=== PATIENT | male | born 1985 | race Caucasian/White ===

== ENCOUNTER 2022-05-22 14:06 | Inpatient (IN) | payer MEDICAID, OTHER, SELFPAY ==
[~2022-05-22 14:06] MED LIST: Iopamidol-370 76% 500 ML 1 ML ONE
[2022-05-22] MEDS ORDERED: Boostrix 0.5 ML (Tdap) VIAL (>/=7 yrs of age) ONE (14:17)
[2022-05-22] MEDS ORDERED: CEFAZOLIN 1 GM VIAL ONE (14:17)
[2022-05-22] MEDS ORDERED: Propofol 1,000 MG/100 ML VIAL IV ONE (14:20)
[2022-05-22] MEDS ORDERED: Fentanyl 100 MCG/2 ML VIAL ONE ×3 (14:22→17:44)
[2022-05-22] MEDS ORDERED: Rocuronium Bromide 10 MG/ML (10ML VIAL) ONE ×2 (14:24→14:30)
[2022-05-22 14:35] LABS: Hemoglobin 11.9 g/dL (14.0-18.0); Mean Corpuscular HGB CONC 31.6 g/dL (32.0-36.0); Mean Corpuscular Hemoglobin 25.5 pg (27.0-31.0); Mean Corpuscular Volume 80.8 fl (78.0-98.0); Mean Platelet Volume 7.5 fL (7.4-10.4); Platelet Count 399 10x3/uL (130-400); RBC Distribution Width 14.3 % (11.5-14.5); Red Blood Cell (RBC) Count 4.68 mill/uL (4.70-6.10); White Blood Cell (WBC) Count 45.7 10x3/uL (4.8-10.8)
[2022-05-22 14:45] LABS: INR-International Normal Ratio 0.9; PTT 24.7 sec (22.9-36.1); Prothrombin Time 12.9 sec (12.0-14.7)
[2022-05-22 14:57] LABS: ALT (SGPT) 34 U/L (8-55); AST (SGOT) 56 U/L (5-34); Albumin 3.8 g/dL (3.5-5.0); Alcohol Less than 10 mg/dL (Less than 10); Alkaline Phosphatase 108 U/L (40-110); Anion Gap 16 mmol/L (10-20); BUN (Urea Nitrogen) 17 mg/dL (8.9-20.6); Bilirubin, Total 0.5 mg/dL (0.2-1.2); Calc. Creatinine Clearance 0 mL/min (70-130); Calcium 8.7 mg/dL (7.8-10.44); Carbon Dioxide 20 mmol/L (22-29); Chloride 104 mmol/L (98-107); Estimated GFR 77; Globulin 3.2 g/dL (2.4-3.5); Glucose 162 mg/dL (70-105); Potassium 3.9 mmol/L (3.5-5.1); Sodium 136 mmol/L (136-145)
[2022-05-22 15:00] LABS: Band 18 % (5-11); Eosinophils 2 % (0-10); Hypochromia SLIGHT = 6-15 cells (100X) (0-5/hpf); Lymphocytes 16 % (21-51); MDiff Complete? YES; Metamyelocyte 1 % (0-0); Monocytes 2 % (0-10); Myelocyte 2 % (0-0); Neutrophil 59 % (42-75); Ovalocytes SLIGHT = 2-5 cells (100X) (0-1/hpf); Platelet Morphology Comment Appears Adequate; Polychromasia SLIGHT = 2-3 cells (100X) (0-2/hpf); Reflex for Review?? YES
[2022-05-22 15:01] LABS: Acetaminophen Less than 10.0 mcg/mL (10.0-30.0); Alcohol Less than 10 mg/dL (Less than 10); Salicylate Less than 8.0 mg/dL (15.0-30.0)
[2022-05-22] MEDS ORDERED: Morphine CADD 100 ML IVPB SCH ×2 (15:15→17:00)
[2022-05-22 15:17] LABS: Bacteria/HPF None Seen HPF (None Seen); Bilirubin Negative (Negative); Blood, Urine 2+ (Negative); Clarity Clear (Clear); Glucose, Urine (Dipstick) Normal (Negative); Ketone, Urine Negative (Negative); Leukocyte Negative Leu/uL (Negative); Nitrite Negative (Negative); Protein, Urine (Dipstick) 10 mg/dL (Neg-Trace); RBC/HPF 0-3 HPF (0-3); Specific Gravity, Urine 1.023 (1.002-1.036); Squamous Epithelial 0-3 HPF (0-3); Urobilinogen Normal mg/dL (Less than 2); WBC/HPF 0-3 HPF (0-3); pH, Urine 5.5 (5.0-9.0)
[2022-05-22 15:24] LABS: Amphetamine Not Detected (NotDetected); Barbiturates Screen Not Detected (NotDetected); Benzodiazepine Screen Not Detected (NotDetected); Cocaine Metabolite Screen Not Detected (NotDetected); Methadone Not Detected (NotDetected); Methamphetamine Not Detected (NotDetected); Opiate Screen Not Detected (NotDetected); Oxycodone Screen Not Detected (NotDetected); Phencyclidine (PCP) Not Detected (NotDetected); THC/Cannabinoid Screen Not Detected (NotDetected); Tricyclic Screen Detected (NotDetected)
[2022-05-22 15:37] LABS: Actual Bicarbonate (HCO3a) 21.9 mEq/L (22-28); Analyzer IN Cardio ER; Base Excess (BEa) -6.7 mEq/L (-2.0 to +3.0); CO2 Tension 58.8 mmHg (35.0-45.0); Calcium, Ionized (arterial) 1.14 mmol/L (1.12-1.30); Hemoglobin (Hb) 11.2 g/dL (14.0-18.0); Potassium - ABG Lab 3.87 mmol/L (3.70-5.30)
[2022-05-22] MEDS ORDERED: Dextrose 5% in Water 1,000 ML IV PRN (16:02)
[2022-05-22] MEDS ORDERED: Insulin Regular 300 UNITS/3 ML VIAL SC PRN (16:02)
[2022-05-22] MEDS ORDERED: Ondansetron PF 4 MG/2 ML Vial IVP PRN (16:02)
[2022-05-22] MEDS ORDERED: Dextrose 50% Abboject 50 ML SYRINGE SLOW IVP PRN (16:02)
[2022-05-22] MEDS ORDERED: Ipratropium/Albuterol 3 ML NEB NEB PRN (16:02)
[2022-05-22] MEDS ORDERED: Ventilator Sedation Protocol FS PRN (16:07)
[2022-05-22] MEDS ORDERED: Fentanyl 100 MCG/2 ML VIAL SLOW IVP PRN (16:09)
[2022-05-22 16:15] LABS: Actual Bicarbonate (HCO3a) 20.3 mEq/L (22-28); Analyzer IN Cardio ER; Base Excess (BEa) -6.8 mEq/L (-2.0 to +3.0); CO2 Tension 47.9 mmHg (35.0-45.0); Calcium, Ionized (arterial) 1.11 mmol/L (1.12-1.30); Hemoglobin (Hb) 10.5 g/dL (14.0-18.0); O2 Tension (PaO2), arterial 81.1 mmHg (80.0-100.0); Potassium - ABG Lab 3.95 mmol/L (3.70-5.30); pH, Arterial 7.25 (7.35-7.45)
[2022-05-22] MEDS ORDERED: Sodium Chloride 0.9% 1,000 ML IV SCH (16:15)
[2022-05-22 16:18] LABS: pH, Arterial 7.19 (7.35-7.45)
[2022-05-22 16:19] LABS: O2 Tension (PaO2), arterial 59.4 mmHg (80.0-100.0); Puncture Site RBA
[2022-05-22 16:20] LABS: ALV-art Gradient 572.025 mmHg (0-20); Puncture Site RBA
[2022-05-22] MEDS ORDERED: Midazolam HCl 5 mg/ml Vial ONE (16:28)
[2022-05-22] MEDS ORDERED: Midazolam HCl 2 mg/2 ml Vial ONE (16:28)
[2022-05-22] MEDS ORDERED: Dexmedetomidine In 0.9 % NaCl 100 ML IVPB SCH ×2 (16:30→21:15)
[2022-05-22 16:33] LABS: SARS-CoV-2 NAA Rapid Test Not Detected (NotDetected)
[2022-05-22 16:45] LABS: Cardiac Risk 4.1 (Less than 4.5)
[2022-05-22] MEDS ORDERED: Midazolam In 0.9 % NaCl/PF 100 ML IVPB SCH (16:45)
[2022-05-22] MEDS ORDERED: Midazolam HCl 2 mg/2 ml Vial SLOW IVP PRN (16:46)
[2022-05-22] MEDS ORDERED: Propofol 1,000 MG/100 ML VIAL IV PRN (17:00)
[2022-05-22] MEDS ORDERED: Morphine 4 MG/ML VIAL SLOW IVP PRN (17:00)
[2022-05-22] MEDS ORDERED: Propofol BOLUS 1,000 MG/100 ML VIAL IV PRN (17:00)
[2022-05-22 17:24] LABS: Lactic Acid 2.6 mmol/L (0.5-2.2)
[2022-05-22] MEDS ORDERED: CEFAZOLIN 2 GM in Sodium Chloride 0.9% 100 ML IVPB SCH (17:30)
[2022-05-22] MEDS ORDERED: Calcium Chloride 1 GM/10 ML Abboject SYRINGE IVP SCH (18:00)
[2022-05-22] MEDS: NACL IVPB SCH (18:17)
[2022-05-22] MEDS: MIDAZOLAM IVPB SCH (18:17)
[2022-05-22] MEDS: ADMIXTURE FEE IVPB SCH (18:17)
[2022-05-22] MEDS ORDERED: Ipratropium/Albuterol 3 ML NEB NEB SCH (18:30)
[2022-05-22] MEDS: FENTANYL 50 MCG/ML 1 ML VIAL SLOW IVP PRN (22:09)
[2022-05-22] MEDS: Famotidine/PF 20 mg/2ml Vial SLOW IVP SCH (22:09)
[2022-05-22] MEDS: Sodium Chloride 0.9% 1,000 ML IV SCH (22:11)
[2022-05-23] MEDS: Ipratropium/Albuterol 3 ML NEB NEB SCH ×4 (00:21→19:08)
[2022-05-23] MEDS: Sodium Chloride 0.9% 1,000 ML IV SCH ×4 (02:49→21:16)
[2022-05-23] MEDS ORDERED: Sodium Chloride 0.9% 1,000 ML IV SCH (03:30)
[2022-05-23 03:56] LABS: #Eosinphils 0.1 thou/uL (0.0-0.7); #Lymphocytes 1.2 thou/uL (1.20-3.40); #Monocytes 1.2 thou/uL (0.11-0.59); #Neutrophils 8.5 thou/uL (1.40-6.50); %Basophils 0.2 % (0.0-1.0); %Eosinophils 0.5 % (0.0-10.0); %Lymphocytes 11.2 % (21.0-51.0); %Monocytes 10.6 % (0.0-10.0); %Neutrophils 77.5 % (42.0-75.0); Hemoglobin 10.6 g/dL (14.0-18.0); Mean Corpuscular Hemoglobin 27.2 pg (27.0-31.0); Mean Corpuscular Volume 82.5 fl (78.0-98.0); Platelet Count 224 10x3/uL (130-400); RBC Distribution Width 14.7 % (11.5-14.5); Red Blood Cell (RBC) Count 3.89 mill/uL (4.70-6.10); White Blood Cell (WBC) Count 10.9 10x3/uL (4.8-10.8)
[2022-05-23 04:15] LABS: Anion Gap 13 mmol/L (10-20); BUN (Urea Nitrogen) 20 mg/dL (8.9-20.6); Calc. Creatinine Clearance 329 mL/min (70-130); Calcium 8.4 mg/dL (7.8-10.44); Carbon Dioxide 21 mmol/L (22-29); Chloride 108 mmol/L (98-107); Estimated GFR 107; Glucose 152 mg/dL (70-105); Magnesium 1.9 mg/dL (1.6-2.6); Phosphorus 3.5 mg/dL (2.3-4.7); Potassium 4.7 mmol/L (3.5-5.1); Sodium 137 mmol/L (136-145)
[2022-05-23 04:28] LABS: CK (CPK) 4157 U/L (30-200)
[2022-05-23] MEDS ORDERED: Magnesium 2 GM/50 ML(in water) 2 GM in Premix Bag 1 BAG IVPB SCH (07:30)
[2022-05-23 07:40] LABS: Actual Bicarbonate (HCO3a) 23.1 mEq/L (22-28); Base Excess (BEa) -1.6 mEq/L (-2.0 to +3.0); CO2 Tension 38.7 mmHg (35.0-45.0); Calcium, Ionized (arterial) 1.13 mmol/L (1.12-1.30); Carboxyhemoglobin (COHb) 0.5 gm% (0.0-3.0); Hemoglobin (Hb) 10.6 g/dL (14.0-18.0); Potassium - ABG Lab 4.58 mmol/L (3.70-5.30); pH, Arterial 7.39 (7.35-7.45)
[2022-05-23 07:42] LABS: ALV-art Gradient 211.125 mmHg (0-20); Puncture Site RRA
[2022-05-23] MEDS: FENTANYL 50 MCG/ML 1 ML VIAL SLOW IVP PRN (08:29)
[2022-05-23] MEDS: Famotidine/PF 20 mg/2ml Vial SLOW IVP SCH ×2 (08:32→21:15)
[2022-05-23] MEDS: Polyethylene Glycol 3350 17 GM Packet PO SCH (08:33)
[2022-05-23] MEDS: Senokot S 8.6-50 MG TAB PO SCH ×2 (08:33→21:15)
[2022-05-23] MEDS ORDERED: TETANUS, DIPHTHERIA TOX,ADULT (TDVAX) 0.5 ML VIAL IM ONE (09:00)
[2022-05-23] MEDS ORDERED: Lidocaine 1% (PF) 30 ML VIAL ONE (09:04)
[2022-05-23] MEDS ORDERED: FENTANYL 50 MCG/ML 1 ML VIAL SLOW IVP SCH (10:15)
[2022-05-23] MEDS ORDERED: CEFAZOLIN 2 GM in Sodium Chloride 0.9% 100 ML IVPB SCH (12:00)
[2022-05-23] MEDS ORDERED: Fentanyl 250 MCG/5 ML VIAL ONE (13:57)
[2022-05-23] MEDS ORDERED: PROPOFOL 200 MG/20 ML VIAL ONE (14:02)
[2022-05-23] MEDS ORDERED: Vecuronium 10 MG VIAL ONE (14:02)
[2022-05-23] MEDS ORDERED: Rocuronium Bromide 10 MG/ML (10ML VIAL) ONE (14:02)
[2022-05-23] MEDS ORDERED: Metoprolol Tartrate 5 MG/5 ML VIAL ONE (14:02)
[2022-05-23] MEDS ORDERED: Midazolam HCl 5 mg/5 ml Vial ONE (14:04)
[2022-05-23] MEDS ORDERED: Levofloxacin 500 mg/D5W 100 ml Premix Bag ONE (14:42)
[2022-05-23] MEDS ORDERED: Clindamycin/D5W 900 mg/50 ml Premix Bag ONE (14:42)
[2022-05-23] MEDS ORDERED: HYDROmorphone 2 MG/ML VIAL ONE (16:28)
[2022-05-23] MEDS ORDERED: Vancomycin 1 GM VIAL ONE (17:25)
[2022-05-23] MEDS ORDERED: Midazolam HCl 2 mg/2 ml Vial SLOW IVP PRN (18:45)
[2022-05-23] MEDS ORDERED: Propofol BOLUS 1,000 MG/100 ML VIAL IV PRN (18:45)
[2022-05-23] MEDS ORDERED: Morphine 4 MG/ML VIAL SLOW IVP PRN (18:45)
[2022-05-23] MEDS ORDERED: DISCONTINUE PREVIOUS NARCOTIC PAIN MEDICATIONS AND BENZODIAZEPINES FS SCH (18:45)
[2022-05-23] MEDS ORDERED: Propofol 1,000 MG/100 ML VIAL IV PRN (18:45)
[2022-05-23] MEDS ORDERED: Fentanyl CADD 100 ML ONE (19:08)
[2022-05-23] MEDS: Fentanyl CADD 100 ML IV SCH (19:19)
[2022-05-23 20:20] LABS: #Eosinphils 0.1 thou/uL (0.0-0.7); #Lymphocytes 1.7 thou/uL (1.20-3.40); #Monocytes 1.3 thou/uL (0.11-0.59); #Neutrophils 13.6 thou/uL (1.40-6.50); %Basophils 0.1 % (0.0-1.0); %Eosinophils 0.3 % (0.0-10.0); %Lymphocytes 10.2 % (21.0-51.0); %Monocytes 7.8 % (0.0-10.0); %Neutrophils 81.7 % (42.0-75.0); Hemoglobin 9.7 g/dL (14.0-18.0); Mean Corpuscular HGB CONC 32.5 g/dL (32.0-36.0); Mean Corpuscular Hemoglobin 27.2 pg (27.0-31.0); Mean Corpuscular Volume 83.8 fl (78.0-98.0); Mean Platelet Volume 7.1 fL (7.4-10.4); Platelet Count 183 10x3/uL (130-400); Red Blood Cell (RBC) Count 3.54 mill/uL (4.70-6.10); White Blood Cell (WBC) Count 16.7 10x3/uL (4.8-10.8)
[2022-05-23 20:36] LABS: Lactic Acid 1.4 mmol/L (0.5-2.2)
[2022-05-23 20:41] LABS: Anion Gap 11 mmol/L (10-20); BUN (Urea Nitrogen) 20 mg/dL (8.9-20.6); Calc. Creatinine Clearance 329 mL/min (70-130); Calcium 7.8 mg/dL (7.8-10.44); Carbon Dioxide 22 mmol/L (22-29); Chloride 109 mmol/L (98-107); Estimated GFR 107; Glucose 139 mg/dL (70-105); Magnesium 2.3 mg/dL (1.6-2.6); Phosphorus 3.7 mg/dL (2.3-4.7); Potassium 5.1 mmol/L (3.5-5.1); Sodium 137 mmol/L (136-145)
[2022-05-23] MEDS ORDERED: Vancomycin HCl 1 GM in Sodium Chloride 0.9% 250 ML 250 ML IVPB SCH (21:00)
[2022-05-23] MEDS: Clindamycin/D5W 900 MG in Premix Bag 1 BAG IVPB SCH (21:15)
[2022-05-24] MEDS ORDERED: Ipratropium Bromide 2.5 ml Neb ONE (00:31)
[2022-05-24] MEDS: Ipratropium/Albuterol 3 ML NEB NEB SCH ×4 (00:42→18:59)
[2022-05-24] MEDS: VANCOMYCIN 2 GRAM/500 ML BAG 2 GM in Premix Bag 1 BAG IVPB SCH ×3 (01:23→18:37)
[2022-05-24] MEDS: MIDAZOLAM IVPB SCH (02:18)
[2022-05-24] MEDS: ADMIXTURE FEE IVPB SCH (02:18)
[2022-05-24] MEDS: NACL IVPB SCH (02:18)
[2022-05-24] MEDS: Sodium Chloride 0.9% 1,000 ML IV SCH ×2 (02:27→08:01)
[2022-05-24 03:35] LABS: #Lymphocytes 1.8 thou/uL (1.20-3.40); #Neutrophils 9.1 thou/uL (1.40-6.50); %Basophils 0.2 % (0.0-1.0); %Eosinophils 0.3 % (0.0-10.0); %Lymphocytes 14.8 % (21.0-51.0); %Monocytes 8.6 % (0.0-10.0); %Neutrophils 76.2 % (42.0-75.0); Hemoglobin 8.6 g/dL (14.0-18.0); Mean Corpuscular HGB CONC 32.4 g/dL (32.0-36.0); Mean Corpuscular Hemoglobin 27.2 pg (27.0-31.0); Platelet Count 164 10x3/uL (130-400); RBC Distribution Width 14.7 % (11.5-14.5); Red Blood Cell (RBC) Count 3.16 mill/uL (4.70-6.10)
[2022-05-24 04:07] LABS: ALT (SGPT) 39 U/L (8-55); AST (SGOT) 104 U/L (5-34); Albumin 2.8 g/dL (3.5-5.0); Alkaline Phosphatase 68 U/L (40-110); Anion Gap 14 mmol/L (10-20); BUN (Urea Nitrogen) 21 mg/dL (8.9-20.6); Bilirubin, Total 0.8 mg/dL (0.2-1.2); Calc. Creatinine Clearance 337 mL/min (70-130); Calcium 7.6 mg/dL (7.8-10.44); Carbon Dioxide 19 mmol/L (22-29); Chloride 110 mmol/L (98-107); Estimated GFR 110; Globulin 2.7 g/dL (2.4-3.5); Glucose 126 mg/dL (70-105); Magnesium 2.3 mg/dL (1.6-2.6); Phosphorus 2.1 mg/dL (2.3-4.7); Potassium 4.7 mmol/L (3.5-5.1); Protein, Total 5.5 g/dL (6.0-8.3); Sodium 138 mmol/L (136-145)
[2022-05-24 04:13] LABS: CK (CPK) 5085 U/L (30-200)
[2022-05-24] MEDS: Clindamycin/D5W 900 MG in Premix Bag 1 BAG IVPB SCH ×2 (05:30→14:20)
[2022-05-24] MEDS: Acetaminophen 500 MG TAB PO SCH ×3 (05:30→17:52)
[2022-05-24 07:49] LABS: Actual Bicarbonate (HCO3a) 24.2 mEq/L (22-28); Base Excess (BEa) -0.5 mEq/L (-2.0 to +3.0); CO2 Tension 40.2 mmHg (35.0-45.0); Carboxyhemoglobin (COHb) 1.1 gm% (0.0-3.0); Hemoglobin (Hb) 8.7 g/dL (14.0-18.0); O2 Tension (PaO2), arterial 76.4 mmHg (80.0-100.0); Potassium - ABG Lab 4.51 mmol/L (3.70-5.30)
[2022-05-24 07:50] LABS: Puncture Site RRA
[2022-05-24] MEDS ORDERED: Sodium Phosphate 30 MMOL in Sodium Chloride 0.9% 250 ML 250 ML IVPB SCH (08:00)
[2022-05-24] MEDS: Senokot S 8.6-50 MG TAB PO SCH ×2 (08:01→20:26)
[2022-05-24] MEDS: Polyethylene Glycol 3350 17 GM Packet PO SCH (08:01)
[2022-05-24] MEDS: Gabapentin 300 MG CAP PO SCH ×3 (08:01→20:25)
[2022-05-24] MEDS: Famotidine/PF 20 mg/2ml Vial SLOW IVP SCH ×2 (08:01→20:27)
[2022-05-24] MEDS ORDERED: Calcium Chloride 1 GM/10 ML Abboject SYRINGE IVP SCH ×2 (08:15→16:00)
[2022-05-24] MEDS ORDERED: Furosemide 20 MG/2 ML VIAL SLOW IVP SCH (08:15)
[2022-05-24] MEDS ORDERED: Fentanyl CADD 100 ML ONE (09:38)
[2022-05-24] MEDS: Fentanyl CADD 100 ML IV SCH (09:43)
[2022-05-24] MEDS ORDERED: Albumin 5% 500 ML ONE (10:18)
[2022-05-24] MEDS: Lactated Ringer's 1,000 ML IV SCH ×3 (10:30→20:33)
[2022-05-24] MEDS: Ketorolac Tromethamine 30 MG/ML VIAL IVP SCH ×3 (11:50→21:50)
[2022-05-24] MEDS ORDERED: Ketorolac Tromethamine 30 MG/ML VIAL IVP SCH (12:00)
[2022-05-24] MEDS ORDERED: Hydrocortisone Sod Succ/PF 100 mg/2 ml Vial IVP SCH (16:00)
[2022-05-24 16:36] LABS: Troponin I 0.245 ng/mL (< 0.028)
[2022-05-24] MEDS: Hydrocortisone Sod Succ/PF 100 mg/2 ml Vial IVP SCH (17:52)
[2022-05-24] MEDS ORDERED: Albuterol 2.5 MG/0.5 ML NEB ONE (18:15)
[2022-05-24 20:19] LABS: #Eosinphils 0.1 thou/uL (0.0-0.7); #Lymphocytes 1.4 thou/uL (1.20-3.40); #Monocytes 1.1 thou/uL (0.11-0.59); #Neutrophils 11.8 thou/uL (1.40-6.50); %Basophils 0.3 % (0.0-1.0); %Eosinophils 0.8 % (0.0-10.0); %Lymphocytes 9.9 % (21.0-51.0); %Monocytes 7.7 % (0.0-10.0); %Neutrophils 81.4 % (42.0-75.0); Hemoglobin 7.2 g/dL (14.0-18.0); Mean Corpuscular HGB CONC 32.1 g/dL (32.0-36.0); Mean Corpuscular Hemoglobin 27.5 pg (27.0-31.0); Mean Corpuscular Volume 85.7 fl (78.0-98.0); Mean Platelet Volume 7.7 fL (7.4-10.4); Platelet Count 140 10x3/uL (130-400); RBC Distribution Width 15.2 % (11.5-14.5); Red Blood Cell (RBC) Count 2.62 mill/uL (4.70-6.10); White Blood Cell (WBC) Count 14.6 10x3/uL (4.8-10.8)
[2022-05-24 20:45] LABS: Critical Call Chem Troponin I RESULT DECREASING; Troponin I 0.244 ng/mL (< 0.028)
[2022-05-24 20:47] LABS: Anion Gap 13 mmol/L (10-20); BUN (Urea Nitrogen) 29 mg/dL (8.9-20.6); Calc. Creatinine Clearance 264 mL/min (70-130); Calcium 7.9 mg/dL (7.8-10.44); Carbon Dioxide 20 mmol/L (22-29); Chloride 112 mmol/L (98-107); Estimated GFR 82; Glucose 117 mg/dL (70-105); Magnesium 2.2 mg/dL (1.6-2.6); Phosphorus 3.1 mg/dL (2.3-4.7); Potassium 4.8 mmol/L (3.5-5.1); Sodium 140 mmol/L (136-145)
[2022-05-24] MEDS ORDERED: Sodium Phosphate 15 MMOL in Sodium Chloride 0.9% 250 ML 250 ML IVPB SCH ×2 (21:30→21:45)
[2022-05-25] MEDS: Acetaminophen 500 MG TAB PO SCH ×5 (00:20→22:09)
[2022-05-25] MEDS: Hydrocortisone Sod Succ/PF 100 mg/2 ml Vial IVP SCH ×3 (00:21→10:40)
[2022-05-25] MEDS ORDERED: Albuterol 2.5 MG/0.5 ML NEB ONE (00:57)
[2022-05-25] MEDS: Ipratropium/Albuterol 3 ML NEB NEB SCH ×4 (01:02→19:10)
[2022-05-25] MEDS: Lactated Ringer's 1,000 ML IV SCH ×3 (02:53→08:26)
[2022-05-25] MEDS: Ketorolac Tromethamine 30 MG/ML VIAL IVP SCH ×4 (04:05→22:08)
[2022-05-25 04:41] LABS: #Eosinphils 0.2 thou/uL (0.0-0.7); #Lymphocytes 1.7 thou/uL (1.20-3.40); #Monocytes 1.4 thou/uL (0.11-0.59); #Neutrophils 13.6 thou/uL (1.40-6.50); %Basophils 0.3 % (0.0-1.0); %Eosinophils 1.1 % (0.0-10.0); %Lymphocytes 10.1 % (21.0-51.0); %Neutrophils 80.6 % (42.0-75.0); Hemoglobin 7.6 g/dL (14.0-18.0); Mean Corpuscular Hemoglobin 27.7 pg (27.0-31.0); Mean Corpuscular Volume 86.6 fl (78.0-98.0); Mean Platelet Volume 7.9 fL (7.4-10.4); Platelet Count 146 10x3/uL (130-400); RBC Distribution Width 15.2 % (11.5-14.5); Red Blood Cell (RBC) Count 2.73 mill/uL (4.70-6.10); White Blood Cell (WBC) Count 16.9 10x3/uL (4.8-10.8)
[2022-05-25 05:09] LABS: Anion Gap 10 mmol/L (10-20); BUN (Urea Nitrogen) 34 mg/dL (8.9-20.6); Calc. Creatinine Clearance 253 mL/min (70-130); Calcium 7.8 mg/dL (7.8-10.44); Carbon Dioxide 21 mmol/L (22-29); Chloride 112 mmol/L (98-107); Estimated GFR 78; Glucose 120 mg/dL (70-105); Magnesium 2.4 mg/dL (1.6-2.6); Phosphorus 3.4 mg/dL (2.3-4.7); Potassium 4.8 mmol/L (3.5-5.1); Sodium 138 mmol/L (136-145)
[2022-05-25 05:22] LABS: CK (CPK) 6438 U/L (30-200)
[2022-05-25 05:39] LABS: Troponin I 0.445 ng/mL (< 0.028)
[2022-05-25] MEDS: Famotidine/PF 20 mg/2ml Vial SLOW IVP SCH ×2 (08:27→20:50)
[2022-05-25] MEDS: Senokot S 8.6-50 MG TAB PO SCH ×2 (08:33→20:51)
[2022-05-25] MEDS: Gabapentin 300 MG CAP PO SCH ×3 (08:33→20:51)
[2022-05-25] MEDS: Polyethylene Glycol 3350 17 GM Packet PO SCH (08:34)
[2022-05-25 08:37] LABS: Actual Bicarbonate (HCO3a) 19.9 mEq/L (22-28); Analyzer IN Cardio ER; Base Excess (BEa) -5.3 mEq/L (-2.0 to +3.0); CO2 Tension 37.7 mmHg (35.0-45.0); Calcium, Ionized (arterial) 1.01 mmol/L (1.12-1.30); Carboxyhemoglobin (COHb) 0.4 gm% (0.0-3.0); Potassium - ABG Lab 4.69 mmol/L (3.70-5.30); pH, Arterial 7.34 (7.35-7.45)
[2022-05-25 08:47] LABS: O2 Tension (PaO2), arterial 58.8 mmHg (80.0-100.0); Puncture Site LRA
[2022-05-25 08:49] LABS: ALV-art Gradient 214.925 mmHg (0-20)
[2022-05-25] MEDS ORDERED: diphenhydrAMINE 50 MG/ML VIAL IVP PRN (09:48)
[2022-05-25] MEDS ORDERED: Naloxone HCl 0.4 mg/ml Vial IV PRN (09:48)
[2022-05-25] MEDS ORDERED: HYDROmorphone 10 mg/100 ml CADD IVPB PRN (09:48)
[2022-05-25] MEDS ORDERED: diphenhydrAMINE 25 MG CAP PO PRN (09:48)
[2022-05-25] MEDS ORDERED: Ondansetron PF 4 MG/2 ML Vial IVP PRN (09:48)
[2022-05-25] MEDS ORDERED: Promethazine HCl 25 MG/ML VIAL IM PRN (09:48)
[2022-05-25] MEDS ORDERED: diphenhydrAMINE 50 MG/ML VIAL IM PRN (09:48)
[2022-05-25] MEDS ORDERED: Zolpidem Tartrate 5 MG TAB PO PRN (09:48)
[2022-05-25] MEDS ORDERED: Furosemide 40 MG/4 ML VIAL ONE (09:55)
[2022-05-25] MEDS ORDERED: Furosemide 20 MG/2 ML VIAL SLOW IVP SCH (10:00)
[2022-05-25] MEDS ORDERED: Communication Order-Pharmacy FS SCH (10:00)
[2022-05-25] MEDS ORDERED: Meropenem 1 GM in Sodium Chloride 0.9% 100 ML IVPB SCH ×2 (10:30→14:00)
[2022-05-25] MEDS ORDERED: Hydrocortisone Sod Succ/PF 100 mg/2 ml Vial IVP SCH (11:52)
[2022-05-25] MEDS: Meropenem 1 GM in Sodium Chloride 0.9% 100 ML IVPB SCH (18:08)
[2022-05-26] MEDS: Meropenem 1 GM in Sodium Chloride 0.9% 100 ML IVPB SCH ×3 (02:05→17:53)
[2022-05-26] MEDS: Ipratropium/Albuterol 3 ML NEB NEB SCH ×4 (02:43→18:47)
[2022-05-26] MEDS: Ketorolac Tromethamine 30 MG/ML VIAL IVP SCH ×4 (05:24→23:05)
[2022-05-26] MEDS: Acetaminophen 500 MG TAB PO SCH ×4 (05:25→23:58)
[2022-05-26 05:31] LABS: CK (CPK) 7728 U/L (30-200)
[2022-05-26 05:44] LABS: Anion Gap 11 mmol/L (10-20); BUN (Urea Nitrogen) 40 mg/dL (8.9-20.6); Calc. Creatinine Clearance 352 mL/min (70-130); Calcium 8.1 mg/dL (7.8-10.44); Carbon Dioxide 24 mmol/L (22-29); Chloride 112 mmol/L (98-107); Estimated GFR 113; Glucose 91 mg/dL (70-105); Magnesium 2.7 mg/dL (1.6-2.6); Sodium 143 mmol/L (136-145)
[2022-05-26 07:04] LABS: Band 12 % (5-11); Eosinophils 2 % (0-10); Hemoglobin 7.2 g/dL (14.0-18.0); Lymphocytes 18 % (21-51); MDiff Complete? YES; Mean Corpuscular HGB CONC 33.3 g/dL (32.0-36.0); Mean Corpuscular Hemoglobin 28.5 pg (27.0-31.0); Mean Corpuscular Volume 85.7 fl (78.0-98.0); Mean Platelet Volume 7.9 fL (7.4-10.4); Monocytes 5 % (0-10); Neutrophil 63 % (42-75); Platelet Count 195 10x3/uL (130-400); RBC Distribution Width 15.5 % (11.5-14.5); Red Blood Cell (RBC) Count 2.53 mill/uL (4.70-6.10); White Blood Cell (WBC) Count 19.1 10x3/uL (4.8-10.8)
[2022-05-26] MEDS ORDERED: Sodium Phosphate 30 MMOL in Sodium Chloride 0.9% 250 ML 250 ML IVPB SCH (09:00)
[2022-05-26 09:14] LABS: Actual Bicarbonate (HCO3a) 25.4 mEq/L (22-28); CO2 Tension 39.1 mmHg (35.0-45.0); Calcium, Ionized (arterial) 1.09 mmol/L (1.12-1.30); Carboxyhemoglobin (COHb) 1.2 gm% (0.0-3.0); Hemoglobin (Hb) 7.8 g/dL (14.0-18.0); Potassium - ABG Lab 3.93 mmol/L (3.70-5.30); pH, Arterial 7.43 (7.35-7.45)
[2022-05-26 09:15] LABS: ALV-art Gradient 97.365 mmHg (0-20); O2 Tension (PaO2), arterial 53.4 mmHg (80.0-100.0); Puncture Site RRA
[2022-05-26] MEDS: Senokot S 8.6-50 MG TAB PO SCH ×2 (09:23→21:36)
[2022-05-26] MEDS: Saccharomyces boulardii 250 MG CAP PO SCH (09:24)
[2022-05-26] MEDS: Ferrous Sulfate 325 MG TAB PO SCH ×2 (09:24→16:09)
[2022-05-26] MEDS: Famotidine/PF 20 mg/2ml Vial SLOW IVP SCH ×2 (09:25→21:36)
[2022-05-26] MEDS: Polyethylene Glycol 3350 17 GM Packet PO SCH (09:25)
[2022-05-26] MEDS: Ascorbic Acid 500 mg Chewable Tablet PO SCH ×2 (09:25→21:36)
[2022-05-26] MEDS ORDERED: HYDROmorphone 10 mg/100 ml CADD IVPB PRN (10:40)
[2022-05-26] MEDS ORDERED: Calcium Chloride 1 GM/10 ML Abboject SYRINGE IVP SCH (11:30)
[2022-05-26] MEDS: Gabapentin 300 MG CAP PO SCH (13:50)
[2022-05-26] MEDS: Gabapentin 100 MG CAP PO SCH ×2 (16:09→21:36)
[2022-05-27] MEDS: Meropenem 1 GM in Sodium Chloride 0.9% 100 ML IVPB SCH ×3 (01:22→18:30)
[2022-05-27] MEDS: Ipratropium/Albuterol 3 ML NEB NEB SCH ×4 (01:40→19:09)
[2022-05-27 04:23] LABS: Hemoglobin 7.2 g/dL (14.0-18.0); Mean Corpuscular HGB CONC 32.1 g/dL (32.0-36.0); Mean Corpuscular Hemoglobin 27.5 pg (27.0-31.0); Mean Corpuscular Volume 85.6 fl (78.0-98.0); Mean Platelet Volume 7.7 fL (7.4-10.4); Platelet Count 242 10x3/uL (130-400); RBC Distribution Width 15.9 % (11.5-14.5); Red Blood Cell (RBC) Count 2.63 mill/uL (4.70-6.10); White Blood Cell (WBC) Count 18.6 10x3/uL (4.8-10.8)
[2022-05-27 05:15] LABS: Band 10 % (5-11); Eosinophils 3 % (0-10); Lymphocytes 15 % (21-51); MDiff Complete? YES; Metamyelocyte 1 % (0-0); Monocytes 10 % (0-10); Myelocyte 4 % (0-0); Neutrophil 57 % (42-75); Nucleated RBC 1 % (0)
[2022-05-27] MEDS: Ketorolac Tromethamine 30 MG/ML VIAL IVP SCH ×2 (05:17→11:15)
[2022-05-27] MEDS: Acetaminophen 500 MG TAB PO SCH ×4 (05:18→23:47)
[2022-05-27 05:31] LABS: Anion Gap 10 mmol/L (10-20); BUN (Urea Nitrogen) 26 mg/dL (8.9-20.6); Calc. Creatinine Clearance 407 mL/min (70-130); Calcium 8.1 mg/dL (7.8-10.44); Carbon Dioxide 26 mmol/L (22-29); Chloride 107 mmol/L (98-107); Estimated GFR 118; Glucose 125 mg/dL (70-105); Magnesium 2.2 mg/dL (1.6-2.6); Phosphorus 2.9 mg/dL (2.3-4.7); Potassium 3.5 mmol/L (3.5-5.1); Sodium 139 mmol/L (136-145)
[2022-05-27] MEDS: Saccharomyces boulardii 250 MG CAP PO SCH (09:14)
[2022-05-27] MEDS: Senokot S 8.6-50 MG TAB PO SCH ×2 (09:14→20:44)
[2022-05-27] MEDS: Ascorbic Acid 500 mg Chewable Tablet PO SCH ×2 (09:14→20:44)
[2022-05-27] MEDS: Gabapentin 100 MG CAP PO SCH ×3 (09:15→20:44)
[2022-05-27] MEDS: Polyethylene Glycol 3350 17 GM Packet PO SCH (09:15)
[2022-05-27] MEDS: Ferrous Sulfate 325 MG TAB PO SCH ×2 (09:15→16:53)
[2022-05-27] MEDS: Famotidine/PF 20 mg/2ml Vial SLOW IVP SCH ×2 (09:15→20:44)
[2022-05-27] MEDS ORDERED: Potassium Phosphate 30 MMOL in Sodium Chloride 0.9% 250 ML 250 ML IVPB SCH (10:00)
[2022-05-27] MEDS ORDERED: Ibuprofen 600 MG TAB PO PRN (10:34)
[2022-05-27] MEDS: Micafungin 150 MG in Sodium Chloride 0.9% 100 ML IVPB SCH (16:52)
[2022-05-28] MEDS: Ipratropium/Albuterol 3 ML NEB NEB SCH ×4 (00:56→18:31)
[2022-05-28] MEDS: Meropenem 1 GM in Sodium Chloride 0.9% 100 ML IVPB SCH ×3 (01:32→17:25)
[2022-05-28 05:26] LABS: Anion Gap 11 mmol/L (10-20); BUN (Urea Nitrogen) 16 mg/dL (8.9-20.6); CK (CPK) 2416 U/L (30-200); Calc. Creatinine Clearance 503 mL/min (70-130); Calcium 8.4 mg/dL (7.8-10.44); Carbon Dioxide 27 mmol/L (22-29); Chloride 106 mmol/L (98-107); Estimated GFR 126; Glucose 98 mg/dL (70-105); Phosphorus 3.6 mg/dL (2.3-4.7); Potassium 4.1 mmol/L (3.5-5.1); Sodium 140 mmol/L (136-145)
[2022-05-28] MEDS: Acetaminophen 500 MG TAB PO SCH ×4 (06:00→23:55)
[2022-05-28 06:39] LABS: Band 17 % (5-11); Eosinophils 5 % (0-10); Hemoglobin 7.7 g/dL (14.0-18.0); Lymphocytes 14 % (21-51); MDiff Complete? YES; Mean Corpuscular HGB CONC 32.9 g/dL (32.0-36.0); Mean Corpuscular Hemoglobin 27.7 pg (27.0-31.0); Mean Corpuscular Volume 84.4 fl (78.0-98.0); Mean Platelet Volume 7.4 fL (7.4-10.4); Monocytes 8 % (0-10); Neutrophil 56 % (42-75); Nucleated RBC 4 % (0); Platelet Count 279 10x3/uL (130-400); Red Blood Cell (RBC) Count 2.78 mill/uL (4.70-6.10); White Blood Cell (WBC) Count 20.4 10x3/uL (4.8-10.8)
[2022-05-28] MEDS: FLUoxetine HCl 20 MG CAP PO SCH (08:57)
[2022-05-28] MEDS: Senokot S 8.6-50 MG TAB PO SCH ×2 (08:57→20:39)
[2022-05-28] MEDS: QUEtiapine 25 MG TAB PO SCH (08:58)
[2022-05-28] MEDS: Ferrous Sulfate 325 MG TAB PO SCH ×2 (08:58→17:25)
[2022-05-28] MEDS: Famotidine 20 MG TAB PO SCH ×2 (08:58→20:41)
[2022-05-28] MEDS: Ascorbic Acid 500 mg Chewable Tablet PO SCH ×2 (08:58→20:41)
[2022-05-28] MEDS: Gabapentin 100 MG CAP PO SCH ×3 (08:58→20:40)
[2022-05-28] MEDS: hydrOXYzine Pamoate 25 mg Capsule PO SCH (08:58)
[2022-05-28] MEDS: Saccharomyces boulardii 250 MG CAP PO SCH (08:58)
[2022-05-28] MEDS: Polyethylene Glycol 3350 17 GM Packet PO SCH (08:59)
[2022-05-28] MEDS: traMADol HCl 50 MG TAB PO SCH ×3 (09:04→20:39)
[2022-05-28] MEDS: Micafungin 150 MG in Sodium Chloride 0.9% 100 ML IVPB SCH (14:37)
[2022-05-28] MEDS ORDERED: hydrALAZINE 20 MG/ML VIAL SLOW IVP PRN (23:41)
[2022-05-28] MEDS: Cyclobenzaprine 10 MG TAB PO PRN (23:56)
[2022-05-29] MEDS: Ipratropium/Albuterol 3 ML NEB NEB SCH ×4 (00:20→18:30)
[2022-05-29] MEDS: Meropenem 1 GM in Sodium Chloride 0.9% 100 ML IVPB SCH ×3 (02:16→16:19)
[2022-05-29] MEDS: traMADol HCl 50 MG TAB PO SCH ×4 (02:16→21:12)
[2022-05-29 05:26] LABS: Anion Gap 13 mmol/L (10-20); BUN (Urea Nitrogen) 15 mg/dL (8.9-20.6); CK (CPK) 1201 U/L (30-200); Calc. Creatinine Clearance 495 mL/min (70-130); Calcium 8.4 mg/dL (7.8-10.44); Carbon Dioxide 26 mmol/L (22-29); Chloride 103 mmol/L (98-107); Estimated GFR 125; Glucose 94 mg/dL (70-105); Magnesium 1.9 mg/dL (1.6-2.6); Potassium 4.1 mmol/L (3.5-5.1); Sodium 138 mmol/L (136-145)
[2022-05-29] MEDS: Acetaminophen 500 MG TAB PO SCH (06:22)
[2022-05-29 06:38] LABS: Mean Corpuscular HGB CONC 32.7 g/dL (32.0-36.0); Mean Corpuscular Hemoglobin 27.7 pg (27.0-31.0); Mean Corpuscular Volume 84.7 fl (78.0-98.0); Mean Platelet Volume 7.2 fL (7.4-10.4); Platelet Count 334 10x3/uL (130-400); RBC Distribution Width 16.1 % (11.5-14.5); Red Blood Cell (RBC) Count 2.89 mill/uL (4.70-6.10)
[2022-05-29 06:49] LABS: Anisocytosis SLIGHT = 6-15 cells (100X) (0-5/hpf); Band 9 % (5-11); Eosinophils 3 % (0-10); Lymphocytes 9 % (21-51); MDiff Complete? YES; Metamyelocyte 6 % (0-0); Monocytes 6 % (0-10); Myelocyte 6 % (0-0); Neutrophil 60 % (42-75); Nucleated RBC 3 % (0); Platelet Morphology Comment Appears Adequate; Polychromasia SLIGHT = 2-3 cells (100X) (0-2/hpf); Promyelocytes 1 % (0-0)
[2022-05-29] MEDS: Ferrous Sulfate 325 MG TAB PO SCH ×2 (10:00→16:19)
[2022-05-29] MEDS: Gabapentin 100 MG CAP PO SCH ×3 (10:01→21:08)
[2022-05-29] MEDS: Famotidine 20 MG TAB PO SCH ×2 (10:02→21:13)
[2022-05-29] MEDS: QUEtiapine 25 MG TAB PO SCH (10:02)
[2022-05-29] MEDS: Senokot S 8.6-50 MG TAB PO SCH ×2 (10:02→21:11)
[2022-05-29] MEDS: Acetaminophen/Codeine 30-300mg Tablet PO SCH ×3 (10:03→21:22)
[2022-05-29] MEDS: Ascorbic Acid 500 mg Chewable Tablet PO SCH ×2 (10:03→21:11)
[2022-05-29] MEDS: Saccharomyces boulardii 250 MG CAP PO SCH (10:03)
[2022-05-29] MEDS: hydrOXYzine Pamoate 25 mg Capsule PO SCH (10:04)
[2022-05-29] MEDS: FLUoxetine HCl 20 MG CAP PO SCH (10:10)
[2022-05-29] MEDS: Polyethylene Glycol 3350 17 GM Packet PO SCH (10:10)
[2022-05-29] MEDS: Micafungin 150 MG in Sodium Chloride 0.9% 100 ML IVPB SCH (14:47)
[2022-05-30] MEDS: Ipratropium/Albuterol 3 ML NEB NEB SCH ×5 (00:30→23:04)
[2022-05-30] MEDS: Meropenem 1 GM in Sodium Chloride 0.9% 100 ML IVPB SCH ×3 (02:46→21:22)
[2022-05-30] MEDS: traMADol HCl 50 MG TAB PO SCH ×3 (02:46→21:20)
[2022-05-30] MEDS: Acetaminophen/Codeine 30-300mg Tablet PO SCH ×4 (02:46→21:14)
[2022-05-30 03:22] LABS: Hemoglobin 9.3 g/dL (14.0-18.0); Mean Corpuscular Hemoglobin 27.1 pg (27.0-31.0); Mean Corpuscular Volume 84.5 fl (78.0-98.0); Mean Platelet Volume 6.9 fL (7.4-10.4); Platelet Count 377 10x3/uL (130-400); RBC Distribution Width 16.6 % (11.5-14.5); Red Blood Cell (RBC) Count 3.42 mill/uL (4.70-6.10)
[2022-05-30 03:36] LABS: Anion Gap 12 mmol/L (10-20); BUN (Urea Nitrogen) 14 mg/dL (8.9-20.6); Calc. Creatinine Clearance 511 mL/min (70-130); Calcium 8.5 mg/dL (7.8-10.44); Carbon Dioxide 25 mmol/L (22-29); Chloride 102 mmol/L (98-107); Estimated GFR 126; Glucose 98 mg/dL (70-105); Magnesium 1.9 mg/dL (1.6-2.6); Phosphorus 3.7 mg/dL (2.3-4.7); Potassium 4.1 mmol/L (3.5-5.1); Sodium 135 mmol/L (136-145)
[2022-05-30 03:50] LABS: Band 11 % (5-11); Eosinophils 8 % (0-10); Lymphocytes 4 % (21-51); MDiff Complete? YES; Monocytes 4 % (0-10); Neutrophil 73 % (42-75); Nucleated RBC 1 % (0)
[2022-05-30] MEDS: FLUoxetine HCl 20 MG CAP PO SCH (08:42)
[2022-05-30] MEDS: Saccharomyces boulardii 250 MG CAP PO SCH (08:43)
[2022-05-30] MEDS: Ascorbic Acid 500 mg Chewable Tablet PO SCH ×2 (08:44→21:14)
[2022-05-30] MEDS: hydrOXYzine Pamoate 25 mg Capsule PO SCH (08:44)
[2022-05-30] MEDS: Gabapentin 100 MG CAP PO SCH ×3 (08:44→21:16)
[2022-05-30] MEDS: QUEtiapine 25 MG TAB PO SCH (08:44)
[2022-05-30] MEDS: Ferrous Sulfate 325 MG TAB PO SCH (08:44)
[2022-05-30] MEDS: Famotidine 20 MG TAB PO SCH ×2 (08:44→21:14)
[2022-05-30] MEDS: Polyethylene Glycol 3350 17 GM Packet PO SCH (08:45)
[2022-05-30] MEDS: Senokot S 8.6-50 MG TAB PO SCH ×2 (09:27→21:15)
[2022-05-30] MEDS: Micafungin 150 MG in Sodium Chloride 0.9% 100 ML IVPB SCH (15:52)
[2022-05-31] MEDS: traMADol HCl 50 MG TAB PO SCH ×6 (00:48→23:05)
[2022-05-31] MEDS: Acetaminophen/Codeine 30-300mg Tablet PO SCH ×4 (02:50→21:07)
[2022-05-31] MEDS: Meropenem 1 GM in Sodium Chloride 0.9% 100 ML IVPB SCH ×3 (02:51→18:36)
[2022-05-31 06:39] LABS: Hemoglobin 8.9 g/dL (14.0-18.0); Mean Corpuscular HGB CONC 31.9 g/dL (32.0-36.0); Mean Corpuscular Hemoglobin 26.8 pg (27.0-31.0); Mean Corpuscular Volume 84.1 fl (78.0-98.0); Platelet Count 448 10x3/uL (130-400); RBC Distribution Width 17.4 % (11.5-14.5); Red Blood Cell (RBC) Count 3.33 mill/uL (4.70-6.10)
[2022-05-31] MEDS: Ipratropium/Albuterol 3 ML NEB NEB SCH ×4 (06:52→22:36)
[2022-05-31] MEDS: Ferrous Sulfate 325 MG TAB PO SCH ×2 (08:48→09:16)
[2022-05-31 09:03] LABS: Band 11 % (5-11); Eosinophils 7 % (0-10); Hypochromia MODERATE=16-30 cells (100X) (0-5/hpf); Lymphocytes 5 % (21-51); MDiff Complete? YES; Monocytes 3 % (0-10); Neutrophil 74 % (42-75); Platelet Morphology Comment Appears Increased; Polychromasia MODERATE = 3-4 cells (100X) (0-2/hpf); White Blood Cell (WBC) Count 32.1 10x3/uL (4.8-10.8)
[2022-05-31] MEDS: hydrOXYzine Pamoate 25 mg Capsule PO SCH (09:13)
[2022-05-31] MEDS: Ascorbic Acid 500 mg Chewable Tablet PO SCH ×2 (09:14→21:09)
[2022-05-31] MEDS: Saccharomyces boulardii 250 MG CAP PO SCH (09:14)
[2022-05-31] MEDS: Senokot S 8.6-50 MG TAB PO SCH ×2 (09:15→21:12)
[2022-05-31] MEDS: QUEtiapine 25 MG TAB PO SCH (09:15)
[2022-05-31] MEDS: Famotidine 20 MG TAB PO SCH ×2 (09:15→21:11)
[2022-05-31] MEDS: FLUoxetine HCl 20 MG CAP PO SCH (09:15)
[2022-05-31] MEDS: Gabapentin 100 MG CAP PO SCH ×3 (09:15→21:11)
[2022-05-31] MEDS: Polyethylene Glycol 3350 17 GM Packet PO SCH (09:18)
[2022-05-31] MEDS: Micafungin 150 MG in Sodium Chloride 0.9% 100 ML IVPB SCH (15:42)
[2022-05-31] MEDS: Cyclobenzaprine 10 MG TAB PO PRN (23:06)
[2022-06-01] MEDS: Meropenem 1 GM in Sodium Chloride 0.9% 100 ML IVPB SCH ×3 (02:50→17:35)
[2022-06-01] MEDS: Acetaminophen/Codeine 30-300mg Tablet PO SCH ×4 (04:05→21:13)
[2022-06-01] MEDS: traMADol HCl 50 MG TAB PO SCH ×3 (05:09→17:17)
[2022-06-01] MEDS: Ipratropium/Albuterol 3 ML NEB NEB SCH ×4 (07:51→23:13)
[2022-06-01] MEDS: Senokot S 8.6-50 MG TAB PO SCH ×2 (09:12→21:48)
[2022-06-01] MEDS: Ascorbic Acid 500 mg Chewable Tablet PO SCH ×2 (09:13→21:13)
[2022-06-01] MEDS: Gabapentin 100 MG CAP PO SCH ×3 (09:13→21:15)
[2022-06-01] MEDS: FLUoxetine HCl 20 MG CAP PO SCH (09:13)
[2022-06-01] MEDS: hydrOXYzine Pamoate 25 mg Capsule PO SCH (09:13)
[2022-06-01] MEDS: Ferrous Sulfate 325 MG TAB PO SCH (09:14)
[2022-06-01] MEDS: Famotidine 20 MG TAB PO SCH ×2 (09:14→21:14)
[2022-06-01] MEDS: Polyethylene Glycol 3350 17 GM Packet PO SCH (09:14)
[2022-06-01] MEDS: Saccharomyces boulardii 250 MG CAP PO SCH (09:14)
[2022-06-01] MEDS: QUEtiapine 25 MG TAB PO SCH (09:15)
[2022-06-01] MEDS: Micafungin 150 MG in Sodium Chloride 0.9% 100 ML IVPB SCH (14:35)
[2022-06-01] MEDS: Cyclobenzaprine 10 MG TAB PO PRN (21:17)
[2022-06-02] MEDS: traMADol HCl 50 MG TAB PO SCH ×4 (01:10→17:27)
[2022-06-02] MEDS: Acetaminophen/Codeine 30-300mg Tablet PO SCH ×4 (04:02→21:18)
[2022-06-02 07:09] LABS: Hemoglobin 9.2 g/dL (14.0-18.0); Mean Corpuscular HGB CONC 30.4 g/dL (32.0-36.0); Mean Corpuscular Hemoglobin 27.4 pg (27.0-31.0); Mean Corpuscular Volume 90.4 fl (78.0-98.0); Mean Platelet Volume 7.7 fL (7.4-10.4); Platelet Count 427 10x3/uL (130-400); RBC Distribution Width 18.6 % (11.5-14.5); Red Blood Cell (RBC) Count 3.35 mill/uL (4.70-6.10)
[2022-06-02 07:24] LABS: Anion Gap 13 mmol/L (10-20); BUN (Urea Nitrogen) 11 mg/dL (8.9-20.6); Calc. Creatinine Clearance 531 mL/min (70-130); Calcium 8.6 mg/dL (7.8-10.44); Carbon Dioxide 21 mmol/L (22-29); Chloride 104 mmol/L (98-107); Estimated GFR 128; Glucose 94 mg/dL (70-105); Magnesium 1.9 mg/dL (1.6-2.6); Phosphorus 3.8 mg/dL (2.3-4.7); Potassium 4.1 mmol/L (3.5-5.1); Sodium 134 mmol/L (136-145)
[2022-06-02] MEDS: Ipratropium/Albuterol 3 ML NEB NEB SCH ×4 (07:32→23:20)
[2022-06-02 07:37] LABS: Band 9 % (5-11); Eosinophils 2 % (0-10); Lymphocytes 11 % (21-51); MDiff Complete? YES; Metamyelocyte 1 % (0-0); Monocytes 8 % (0-10); Myelocyte 4 % (0-0); Neutrophil 65 % (42-75); Nucleated RBC 1 % (0); Polychromasia MODERATE = 3-4 cells (100X) (0-2/hpf)
[2022-06-02] MEDS: Gabapentin 100 MG CAP PO SCH ×3 (08:43→21:19)
[2022-06-02] MEDS: Saccharomyces boulardii 250 MG CAP PO SCH (08:43)
[2022-06-02] MEDS: Senokot S 8.6-50 MG TAB PO SCH ×2 (08:43→21:17)
[2022-06-02] MEDS: hydrOXYzine Pamoate 25 mg Capsule PO SCH (08:43)
[2022-06-02] MEDS: Famotidine 20 MG TAB PO SCH ×2 (08:43→21:19)
[2022-06-02] MEDS: Ascorbic Acid 500 mg Chewable Tablet PO SCH ×2 (08:43→21:20)
[2022-06-02] MEDS: Ferrous Sulfate 325 MG TAB PO SCH (08:44)
[2022-06-02] MEDS: Polyethylene Glycol 3350 17 GM Packet PO SCH (08:44)
[2022-06-02] MEDS: QUEtiapine 25 MG TAB PO SCH (08:44)
[2022-06-02] MEDS: FLUoxetine HCl 20 MG CAP PO SCH (08:44)
[2022-06-02] MEDS: Micafungin 150 MG in Sodium Chloride 0.9% 100 ML IVPB SCH (14:50)
[2022-06-03] MEDS: traMADol HCl 50 MG TAB PO SCH ×4 (00:25→18:04)
[2022-06-03] MEDS: Acetaminophen/Codeine 30-300mg Tablet PO SCH ×4 (03:11→20:17)
[2022-06-03] MEDS: Ipratropium/Albuterol 3 ML NEB NEB SCH ×4 (07:40→23:56)
[2022-06-03] MEDS: Saccharomyces boulardii 250 MG CAP PO SCH (09:25)
[2022-06-03] MEDS: hydrOXYzine Pamoate 25 mg Capsule PO SCH (09:25)
[2022-06-03] MEDS: FLUoxetine HCl 20 MG CAP PO SCH (09:25)
[2022-06-03] MEDS: Ascorbic Acid 500 mg Chewable Tablet PO SCH ×2 (09:25→20:17)
[2022-06-03] MEDS: Ferrous Sulfate 325 MG TAB PO SCH (09:25)
[2022-06-03] MEDS: Senokot S 8.6-50 MG TAB PO SCH ×2 (09:25→20:20)
[2022-06-03] MEDS: Famotidine 20 MG TAB PO SCH ×2 (09:25→20:17)
[2022-06-03] MEDS: QUEtiapine 25 MG TAB PO SCH (09:25)
[2022-06-03] MEDS: Gabapentin 100 MG CAP PO SCH ×3 (09:27→20:18)
[2022-06-03] MEDS: Polyethylene Glycol 3350 17 GM Packet PO SCH (09:33)
[2022-06-03] MEDS ORDERED: diphenhydrAMINE 25 MG CAP PO PRN (16:08)
[2022-06-04] MEDS: traMADol HCl 50 MG TAB PO SCH ×4 (00:37→18:12)
[2022-06-04] MEDS: Acetaminophen/Codeine 30-300mg Tablet PO SCH ×4 (02:32→21:06)
[2022-06-04] MEDS: Cyclobenzaprine 10 MG TAB PO PRN (05:07)
[2022-06-04] MEDS: Ipratropium/Albuterol 3 ML NEB NEB SCH ×3 (08:13→18:49)
[2022-06-04] MEDS: Polyethylene Glycol 3350 17 GM Packet PO SCH (10:17)
[2022-06-04] MEDS: Senokot S 8.6-50 MG TAB PO SCH ×2 (10:17→21:07)
[2022-06-04] MEDS: FLUoxetine HCl 20 MG CAP PO SCH (10:18)
[2022-06-04] MEDS: QUEtiapine 25 MG TAB PO SCH (10:18)
[2022-06-04] MEDS: hydrOXYzine Pamoate 25 mg Capsule PO SCH (10:18)
[2022-06-04] MEDS: Ferrous Sulfate 325 MG TAB PO SCH (10:18)
[2022-06-04] MEDS: Saccharomyces boulardii 250 MG CAP PO SCH (10:19)
[2022-06-04] MEDS: Ascorbic Acid 500 mg Chewable Tablet PO SCH (10:19)
[2022-06-04] MEDS: Gabapentin 100 MG CAP PO SCH ×3 (10:19→21:06)
[2022-06-04] MEDS: Famotidine 20 MG TAB PO SCH ×2 (10:20→21:07)
[2022-06-05] MEDS: traMADol HCl 50 MG TAB PO SCH ×5 (00:02→23:25)
[2022-06-05] MEDS: Ipratropium/Albuterol 3 ML NEB NEB SCH ×4 (00:39→18:38)
[2022-06-05] MEDS: Acetaminophen/Codeine 30-300mg Tablet PO SCH ×4 (03:29→21:10)
[2022-06-05 06:20] LABS: #Eosinphils 0.8 thou/uL (0.0-0.7); #Lymphocytes 1.8 thou/uL (1.20-3.40); #Monocytes 1.2 thou/uL (0.11-0.59); #Neutrophils 11.7 thou/uL (1.40-6.50); %Basophils 0.2 % (0.0-1.0); %Eosinophils 4.9 % (0.0-10.0); %Lymphocytes 11.4 % (21.0-51.0); %Neutrophils 75.4 % (42.0-75.0); Hemoglobin 8.9 g/dL (14.0-18.0); Mean Corpuscular HGB CONC 30.9 g/dL (32.0-36.0); Mean Corpuscular Hemoglobin 26.8 pg (27.0-31.0); Mean Corpuscular Volume 86.8 fl (78.0-98.0); Mean Platelet Volume 6.5 fL (7.4-10.4); Platelet Count 557 10x3/uL (130-400); Red Blood Cell (RBC) Count 3.32 mill/uL (4.70-6.10); White Blood Cell (WBC) Count 15.5 10x3/uL (4.8-10.8)
[2022-06-05 06:40] LABS: Anion Gap 12 mmol/L (10-20); BUN (Urea Nitrogen) 10 mg/dL (8.9-20.6); Calc. Creatinine Clearance 456 mL/min (70-130); Calcium 8.9 mg/dL (7.8-10.44); Carbon Dioxide 25 mmol/L (22-29); Chloride 102 mmol/L (98-107); Estimated GFR 124; Glucose 107 mg/dL (70-105); Phosphorus 4.5 mg/dL (2.3-4.7); Potassium 3.9 mmol/L (3.5-5.1); Sodium 135 mmol/L (136-145)
[2022-06-05] MEDS: Senokot S 8.6-50 MG TAB PO SCH ×2 (11:44→21:11)
[2022-06-05] MEDS: FLUoxetine HCl 20 MG CAP PO SCH (11:45)
[2022-06-05] MEDS: QUEtiapine 25 MG TAB PO SCH (11:47)
[2022-06-05] MEDS: Famotidine 20 MG TAB PO SCH ×2 (11:48→21:10)
[2022-06-05] MEDS: Ferrous Sulfate 325 MG TAB PO SCH (11:48)
[2022-06-05] MEDS: Saccharomyces boulardii 250 MG CAP PO SCH (11:48)
[2022-06-05] MEDS: hydrOXYzine Pamoate 25 mg Capsule PO SCH (11:49)
[2022-06-05] MEDS: Ascorbic Acid 500 mg Chewable Tablet PO SCH (11:49)
[2022-06-05] MEDS: Polyethylene Glycol 3350 17 GM Packet PO SCH (11:50)
[2022-06-05] MEDS: cloNIDine 0.2 MG TAB PO SCH ×3 (13:22→23:25)
[2022-06-05] MEDS: Gabapentin 100 MG CAP PO SCH (13:26)
[2022-06-05] MEDS: Gabapentin 300 MG CAP PO SCH ×2 (15:55→21:10)
[2022-06-06] MEDS: Ipratropium/Albuterol 3 ML NEB NEB SCH ×5 (00:04→23:25)
[2022-06-06] MEDS: Acetaminophen/Codeine 30-300mg Tablet PO SCH ×4 (03:22→20:29)
[2022-06-06] MEDS: traMADol HCl 50 MG TAB PO SCH ×4 (05:47→23:46)
[2022-06-06] MEDS: cloNIDine 0.2 MG TAB PO SCH ×4 (05:47→23:46)
[2022-06-06] MEDS: Gabapentin 300 MG CAP PO SCH ×3 (09:51→20:30)
[2022-06-06] MEDS: Saccharomyces boulardii 250 MG CAP PO SCH (09:51)
[2022-06-06] MEDS: Polyethylene Glycol 3350 17 GM Packet PO SCH (09:51)
[2022-06-06] MEDS: Senokot S 8.6-50 MG TAB PO SCH ×2 (09:52→20:31)
[2022-06-06] MEDS: Ascorbic Acid 500 mg Chewable Tablet PO SCH (09:53)
[2022-06-06] MEDS: hydrOXYzine Pamoate 25 mg Capsule PO SCH (09:53)
[2022-06-06] MEDS: FLUoxetine HCl 20 MG CAP PO SCH (09:53)
[2022-06-06] MEDS: Ferrous Sulfate 325 MG TAB PO SCH (09:53)
[2022-06-06] MEDS: Famotidine 20 MG TAB PO SCH ×2 (09:53→20:30)
[2022-06-06] MEDS: QUEtiapine 25 MG TAB PO SCH (09:53)
[2022-06-07] MEDS: Acetaminophen/Codeine 30-300mg Tablet PO SCH ×4 (02:57→20:15)
[2022-06-07] MEDS: cloNIDine 0.2 MG TAB PO SCH ×4 (05:48→23:43)
[2022-06-07] MEDS: traMADol HCl 50 MG TAB PO SCH ×3 (05:48→17:27)
[2022-06-07] MEDS: Ipratropium/Albuterol 3 ML NEB NEB SCH ×3 (06:46→18:36)
[2022-06-07] MEDS: Ferrous Sulfate 325 MG TAB PO SCH (10:17)
[2022-06-07] MEDS: FLUoxetine HCl 20 MG CAP PO SCH (10:18)
[2022-06-07] MEDS: Famotidine 20 MG TAB PO SCH ×2 (10:18→20:16)
[2022-06-07] MEDS: Ascorbic Acid 500 mg Chewable Tablet PO SCH (10:18)
[2022-06-07] MEDS: QUEtiapine 25 MG TAB PO SCH (10:18)
[2022-06-07] MEDS: Saccharomyces boulardii 250 MG CAP PO SCH (10:19)
[2022-06-07] MEDS: Gabapentin 300 MG CAP PO SCH ×3 (10:19→20:15)
[2022-06-07] MEDS: Senokot S 8.6-50 MG TAB PO SCH ×2 (10:19→20:15)
[2022-06-07] MEDS: hydrOXYzine Pamoate 25 mg Capsule PO SCH (10:19)
[2022-06-07] MEDS: Polyethylene Glycol 3350 17 GM Packet PO SCH (10:23)
[2022-06-08] MEDS: Ipratropium/Albuterol 3 ML NEB NEB SCH ×5 (00:20→23:35)
[2022-06-08] MEDS: traMADol HCl 50 MG TAB PO SCH ×5 (00:33→23:44)
[2022-06-08] MEDS: Acetaminophen/Codeine 30-300mg Tablet PO SCH ×5 (02:53→20:16)
[2022-06-08] MEDS: cloNIDine 0.2 MG TAB PO SCH ×2 (05:40→12:28)
[2022-06-08] MEDS: QUEtiapine 25 MG TAB PO SCH (08:39)
[2022-06-08] MEDS: hydrOXYzine Pamoate 25 mg Capsule PO SCH (08:39)
[2022-06-08] MEDS: Senokot S 8.6-50 MG TAB PO SCH ×2 (08:40→21:47)
[2022-06-08] MEDS: Ascorbic Acid 500 mg Chewable Tablet PO SCH (08:40)
[2022-06-08] MEDS: Famotidine 20 MG TAB PO SCH ×2 (08:40→20:21)
[2022-06-08] MEDS: Gabapentin 300 MG CAP PO SCH ×3 (08:40→20:21)
[2022-06-08] MEDS: Saccharomyces boulardii 250 MG CAP PO SCH (08:40)
[2022-06-08] MEDS: Ferrous Sulfate 325 MG TAB PO SCH (08:40)
[2022-06-08] MEDS: FLUoxetine HCl 20 MG CAP PO SCH (08:40)
[2022-06-08] MEDS: Polyethylene Glycol 3350 17 GM Packet PO SCH (10:45)
[2022-06-08] MEDS: cloNIDine 0.1 MG TAB PO SCH ×2 (16:50→23:44)
[2022-06-09] MEDS: Acetaminophen/Codeine 30-300mg Tablet PO SCH ×4 (03:20→21:13)
[2022-06-09] MEDS: traMADol HCl 50 MG TAB PO SCH ×3 (05:22→17:24)
[2022-06-09] MEDS: cloNIDine 0.1 MG TAB PO SCH ×3 (05:23→17:25)
[2022-06-09] MEDS: Ipratropium/Albuterol 3 ML NEB NEB SCH ×4 (06:53→23:51)
[2022-06-09] MEDS: Ferrous Sulfate 325 MG TAB PO SCH (09:23)
[2022-06-09] MEDS: QUEtiapine 25 MG TAB PO SCH (09:23)
[2022-06-09] MEDS: Gabapentin 300 MG CAP PO SCH ×3 (09:23→21:14)
[2022-06-09] MEDS: FLUoxetine HCl 20 MG CAP PO SCH (09:24)
[2022-06-09] MEDS: Ascorbic Acid 500 mg Chewable Tablet PO SCH (09:24)
[2022-06-09] MEDS: Famotidine 20 MG TAB PO SCH ×2 (09:24→21:16)
[2022-06-09] MEDS: hydrOXYzine Pamoate 25 mg Capsule PO SCH (09:28)
[2022-06-09] MEDS: Saccharomyces boulardii 250 MG CAP PO SCH (10:34)
[2022-06-09] MEDS: Senokot S 8.6-50 MG TAB PO SCH ×2 (10:34→21:15)
[2022-06-09] MEDS: Polyethylene Glycol 3350 17 GM Packet PO SCH (10:34)
[2022-06-10] MEDS: traMADol HCl 50 MG TAB PO SCH ×4 (00:54→18:05)
[2022-06-10] MEDS: cloNIDine 0.1 MG TAB PO SCH ×4 (00:55→18:05)
[2022-06-10] MEDS ORDERED: Calcium Carbonate 500 MG ChewTAB PO PRN ×2 (02:48→11:58)
[2022-06-10] MEDS: Acetaminophen/Codeine 30-300mg Tablet PO SCH ×4 (03:07→20:42)
[2022-06-10] MEDS: Ipratropium/Albuterol 3 ML NEB NEB SCH ×4 (06:49→23:58)
[2022-06-10] MEDS: Gabapentin 300 MG CAP PO SCH ×3 (09:33→20:43)
[2022-06-10] MEDS: FLUoxetine HCl 20 MG CAP PO SCH (09:33)
[2022-06-10] MEDS: hydrOXYzine Pamoate 25 mg Capsule PO SCH (09:34)
[2022-06-10] MEDS: Senokot S 8.6-50 MG TAB PO SCH ×2 (09:34→20:43)
[2022-06-10] MEDS: Famotidine 20 MG TAB PO SCH (09:34)
[2022-06-10] MEDS: Ascorbic Acid 500 mg Chewable Tablet PO SCH (09:34)
[2022-06-10] MEDS: Ferrous Sulfate 325 MG TAB PO SCH (09:34)
[2022-06-10] MEDS: QUEtiapine 25 MG TAB PO SCH (09:34)
[2022-06-10] MEDS: Saccharomyces boulardii 250 MG CAP PO SCH (09:34)
[2022-06-10] MEDS: Polyethylene Glycol 3350 17 GM Packet PO SCH (09:35)
[2022-06-11] MEDS: cloNIDine 0.1 MG TAB PO SCH ×5 (00:17→23:30)
[2022-06-11] MEDS: traMADol HCl 50 MG TAB PO SCH ×5 (00:17→23:29)
[2022-06-11] MEDS: Acetaminophen/Codeine 30-300mg Tablet PO SCH ×4 (03:04→20:44)
[2022-06-11] MEDS: Ipratropium/Albuterol 3 ML NEB NEB SCH ×4 (06:42→23:53)
[2022-06-11] MEDS: FLUoxetine HCl 20 MG CAP PO SCH (08:37)
[2022-06-11] MEDS: Ascorbic Acid 500 mg Chewable Tablet PO SCH (08:38)
[2022-06-11] MEDS: hydrOXYzine Pamoate 25 mg Capsule PO SCH (08:38)
[2022-06-11] MEDS: Gabapentin 300 MG CAP PO SCH ×3 (08:38→20:45)
[2022-06-11] MEDS: Saccharomyces boulardii 250 MG CAP PO SCH (08:39)
[2022-06-11] MEDS: Polyethylene Glycol 3350 17 GM Packet PO SCH (08:40)
[2022-06-11] MEDS: Senokot S 8.6-50 MG TAB PO SCH ×2 (08:40→20:46)
[2022-06-11] MEDS: Ferrous Sulfate 325 MG TAB PO SCH (08:40)
[2022-06-11] MEDS: QUEtiapine 25 MG TAB PO SCH (08:40)
[2022-06-11 17:21] VITALS: BMI 58.1
[2022-06-12] MEDS: Acetaminophen/Codeine 30-300mg Tablet PO SCH ×4 (03:44→20:28)
[2022-06-12] MEDS: traMADol HCl 50 MG TAB PO SCH ×3 (05:35→18:14)
[2022-06-12] MEDS: cloNIDine 0.1 MG TAB PO SCH ×3 (05:36→18:15)
[2022-06-12] MEDS: Ipratropium/Albuterol 3 ML NEB NEB SCH ×4 (08:12→23:09)
[2022-06-12] MEDS: Saccharomyces boulardii 250 MG CAP PO SCH (08:33)
[2022-06-12] MEDS: Ferrous Sulfate 325 MG TAB PO SCH (08:33)
[2022-06-12] MEDS: QUEtiapine 25 MG TAB PO SCH (08:34)
[2022-06-12] MEDS: hydrOXYzine Pamoate 25 mg Capsule PO SCH (08:34)
[2022-06-12] MEDS: FLUoxetine HCl 20 MG CAP PO SCH (08:34)
[2022-06-12] MEDS: Gabapentin 300 MG CAP PO SCH ×3 (08:34→20:29)
[2022-06-12] MEDS: Ascorbic Acid 500 mg Chewable Tablet PO SCH (08:34)
[2022-06-12] MEDS: Polyethylene Glycol 3350 17 GM Packet PO SCH (08:35)
[2022-06-12] MEDS: Senokot S 8.6-50 MG TAB PO SCH ×2 (08:35→20:29)
[2022-06-13] MEDS: traMADol HCl 50 MG TAB PO SCH ×3 (00:07→11:16)
[2022-06-13] MEDS: cloNIDine 0.1 MG TAB PO SCH ×2 (00:08→05:53)
[2022-06-13] MEDS: Acetaminophen/Codeine 30-300mg Tablet PO SCH ×2 (03:54→08:23)
[2022-06-13 07:38] LABS: Platelet Count 546 10x3/uL (130-400)
[2022-06-13] MEDS: Ipratropium/Albuterol 3 ML NEB NEB SCH ×2 (08:10→14:44)
[2022-06-13] MEDS: QUEtiapine 25 MG TAB PO SCH (08:24)
[2022-06-13] MEDS: Gabapentin 300 MG CAP PO SCH (08:24)
[2022-06-13] MEDS: Ascorbic Acid 500 mg Chewable Tablet PO SCH (08:24)
[2022-06-13] MEDS: FLUoxetine HCl 20 MG CAP PO SCH (08:24)
[2022-06-13] MEDS: Ferrous Sulfate 325 MG TAB PO SCH (08:25)
[2022-06-13] MEDS: hydrOXYzine Pamoate 25 mg Capsule PO SCH (08:25)
[2022-06-13] MEDS: Saccharomyces boulardii 250 MG CAP PO SCH (08:25)
[2022-06-13] MEDS: Polyethylene Glycol 3350 17 GM Packet PO SCH (08:26)
[2022-06-13] MEDS: Senokot S 8.6-50 MG TAB PO SCH (08:26)
[2022-06-13 12:26] VITALS: BP 135/71; TEMP 98.1
== END 2022-06-13 16:00 | disposition home or self-care (01) | DRG 956 ==
LOC: ERS 14:06 → CCU 15:29 → IMCU/EMU 05-27 06:43 → SURG A 05-30 19:49
PROVIDERS: ADMIT Specialist; ATTEND Surgery
PROC: 0BH17EZ Insertion of Endotracheal Airway into Trachea, Via Natural or Artificial Opening (ICD-10-PCS; principal; 2022-05-22)
PROC: 0W9930Z Drainage of Right Pleural Cavity with Drainage Device, Percutaneous Approach (ICD-10-PCS; 2022-05-22)
PROC: 0PSLXZZ Reposition Left Ulna, External Approach (ICD-10-PCS; 2022-05-22)
PROC: 0PSJXZZ Reposition Left Radius, External Approach (ICD-10-PCS; 2022-05-22)
PROC: 5A1945Z Respiratory Ventilation, 24-96 Consecutive Hours (ICD-10-PCS; 2022-05-22)
PROC: 30233N1 Transfusion of Nonautologous Red Blood Cells into Peripheral Vein, Percutaneous Approach (ICD-10-PCS; 2022-05-22)
PROC: 30233K1 Transfusion of Nonautologous Frozen Plasma into Peripheral Vein, Percutaneous Approach (ICD-10-PCS; 2022-05-22)
PROC: 0QS806Z Reposition Right Femoral Shaft with Intramedullary Internal Fixation Device, Open Approach (ICD-10-PCS; 2022-05-23)
PROC: 0PSJ04Z Reposition Left Radius with Internal Fixation Device, Open Approach (ICD-10-PCS; 2022-05-23)
PROC: 0PSL04Z Reposition Left Ulna with Internal Fixation Device, Open Approach (ICD-10-PCS; 2022-05-23)
PROC: 0WP9X0Z Removal of Drainage Device from Right Pleural Cavity, External Approach (ICD-10-PCS; 2022-05-23)
PROC: 0W9930Z Drainage of Right Pleural Cavity with Drainage Device, Percutaneous Approach (ICD-10-PCS; 2022-05-23)
PROC: 02HV33Z Insertion of Infusion Device into Superior Vena Cava, Percutaneous Approach (ICD-10-PCS; 2022-05-24)
PROC: 5A0935A Assistance with Respiratory Ventilation, Less than 24 Consecutive Hours, High Flow/Velocity Cannula (ICD-10-PCS; 2022-05-25)
PROC: 5A09357 Assistance with Respiratory Ventilation, Less than 24 Consecutive Hours, Continuous Positive Airway Pressure (ICD-10-PCS; 2022-05-26)
DX: S27.2XXA Traumatic hemopneumothorax, initial encounter (principal); S32.401A Unspecified fracture of right acetabulum, initial encounter for closed fracture; S72.301A Unspecified fracture of shaft of right femur, initial encounter for closed fracture; J96.00 Acute respiratory failure, unspecified whether with hypoxia or hypercapnia; S22.5XXA Flail chest, initial encounter for closed fracture; I21.A1 Myocardial infarction type 2; J69.0 Pneumonitis due to inhalation of food and vomit; S52.502A Unspecified fracture of the lower end of left radius, initial encounter for closed fracture; S06.0X1A Concussion with loss of consciousness of 30 minutes or less, initial encounter; S52.292A Other fracture of shaft of left ulna, initial encounter for closed fracture; S52.392A Other fracture of shaft of radius, left arm, initial encounter for closed fracture; Z68.43 Body mass index [BMI] 50.0-59.9, adult; S27.322A Contusion of lung, bilateral, initial encounter; D62 Acute posthemorrhagic anemia; S26.11XA Contusion of heart without hemopericardium, initial encounter; Z20.822 Contact with and (suspected) exposure to COVID-19; E66.01 Morbid (severe) obesity due to excess calories; R40.2413 Glasgow coma scale score 13-15, at hospital admission; I95.9 Hypotension, unspecified; T79.6XXA Traumatic ischemia of muscle, initial encounter; E83.51 Hypocalcemia; E83.39 Other disorders of phosphorus metabolism; F31.9 Bipolar disorder, unspecified; E83.42 Hypomagnesemia; V49.40XA Driver injured in collision with unspecified motor vehicles in traffic accident, initial encounter; K21.9 Gastro-esophageal reflux disease without esophagitis; S30.1XXA Contusion of abdominal wall, initial encounter; Z88.0 Allergy status to penicillin; Z91.040 Latex allergy status
CPT/HCPCS: 29125; 31500; 32551; 36415; 36416; 36430; 36600; 70450; 71045; 71260; 72125; 74177; 80048; 80053; 80061; 80306; 80307; 81003; 81015; 82533; 82550; 82805; 83605; 83735; 83880; 84100; 84484; 85014; 85018; 85025; 85049; 85060; 85520; 85610; 85730; 86850; 86900; 86901; 87040; 87070; 87086; 87205; 87811; 90471; 90715; 93005; 93010; 93306; 93970; 94002; 94003; 94640; 94660; 96365; 96367; 96375; 96376; 99292; C1713; C1874; G0390; J0690; J1170; J1200; J1650; J1720; J1885; J1940; J1956; J2001; J2185; J2248; J2250; J2274; J2704; J3010; J3370; J3475; J3490; J7050; J7120; J7611; J7620; P9016; P9045; P9048; P9059; Q0177; Q9967; S0028